=== PATIENT | male | born 1970 | race Caucasian/White ===

== ENCOUNTER 2023-07-30 11:59 | Emergency (ER) | payer OTHER, SELFPAY ==
--- NOTE | 2023-07-30 12:16 | ED.URI ---
HPI - URI/Sore Throat General Chief Complaint: Upper Respiratory Infection Stated Complaint: Sinus Infection Time Seen by Provider: 07/30/23 12:17 Source: patient Mode of arrival: ambulatory Limitations: no limitations History of Present Illness HPI Narrative: Patient is a 52-year-old male who presents with 2 weeks of congestion and cough. Denies any fever, chills, nausea, vomiting, diarrhea. Has been taking [id number] medication with no relief. Related Data Allergies Allergy/AdvReac Type Severity Reaction Status Date / Time amoxicillin [From Augmentin] AdvReac Mild Rash Verified 07/30/23 13:28 clavulanic acid AdvReac Mild Rash Verified 07/30/23 13:28 [From Augmentin] Review of Systems Review of Systems: All systems reviewed & are unremarkable except as noted in HPI and below Constitutional: Constitutional: Denies body ache(s), Denies chills, Denies fatigue, Denies fever(s), Denies headache(s), Denies malaise and Denies weakness Eyes: Eyes: Denies blurry vision, Denies itchy eyes and Denies loss of vision ENT: Denies otalgia, Denies headache(s), Reports nasal congestion, Denies sinus pain and Denies sore throat Cardiovascular: Cardiovascular: Denies chest pain, Denies irregular heart rhythm and Denies dyspnea Respiratory: Respiratory: Reports cough and Denies dyspnea Gastrointestinal: Gastrointestinal: Denies abdominal pain, Denies diarrhea, Denies nausea and Denies vomiting Musculoskeletal: Musculoskeletal: Denies back pain, Denies myalgias and Denies arthralgias Integumentary/Breasts: Skin/Breast: Denies pruritus and Denies rash Neurologic: Denies headache(s), Denies loss of vision and Denies weakness Psychiatric: Psychiatric: Reports no additional psychiatric complaints Endocrine: Endocrine: Denies fatigue Allergic/Immunologic: Allergic/Immunologic: Denies itchy eyes PMFSH Comments At time of signature, agree with nursing past medical, surgical, social and family history. There is no relevant family history pertinent to the presenting complaint. Exam Const: General: cooperative, healthy appearing, comfortable, no acute distress and well nourished Nutritional Appearance: well nourished Orientation/consciousness: patient oriented x3 Limitations: no limitations HENMT: Head: normal to inspection, normocephalic and atraumatic Ears: hearing grossly normal bilaterally, external ears normal, TM's normal bilaterally, EAC's normal and no periauricular adenopathy Face/Nose/Sinus: Normal external nose present, Normal nasal mucous membranes and turbinates present, normal facial exam, sinuses nontender and face symmetric Face and sinus: normal facial exam, sinuses nontender and face symmetric Mouth: Yes Normal oral and palatal mucosa present, Yes lip normal, Yes tongue normal, Yes Normal salivary glands and ducts present, Yes oropharynx normal and Yes moist mucous membranes Teeth and gingiva: dentition normal Throat: posterior oropharynx normal, tonsils normal and uvula midline Eyes: General: appearance normal, both eyes and all related structures Alignment and Position: alignment normal and position normal Periorbital: periorbital findings normal Eyelids: eyelids normal Pupils: Equal, round and reactive pupils present Neck: Neck: normal visual inspection, full ROM, no lymphadenopathy and supple Chest: Chest palpation & inspection: normal inspection of the chest and normal palpation of entire chest wall Resp: Effort & Inspection: normal respiratory effort, able to speak in complete sentences and Actively coughing dry Auscultation: clear to auscultation bilaterally, no crackles, no rales, no rhonchi and no wheezes Cardio: Rate: regular rate Rhythm: regular rhythm Heart sounds: S1 normal heart sound present and S2 normal heart sound present GI: Inspection: normal to inspection Skin: General skin exam: normal color and no rashes or lesions noted Neuro: General: patient oriented x3 and moves all extremiti
[2023-07-30 12:57] VITALS: BP 160/105; PULSE 85; RESP 18; TEMP 36.3; O2SAT 99
== END 2023-07-30 13:37 | disposition home or self-care (01) ==
PROVIDERS: Emergency Provider Nurse Practitioner Family
DX: J06.9 Acute upper respiratory infection, unspecified (principal); R05.9 Cough, unspecified
CPT/HCPCS: 99213; G0463

== ENCOUNTER 2024-11-19 17:55 | Emergency (ER) | payer OTHER, SELFPAY ==
--- OUTSIDE RECORDS SUMMARY | 2024-11-19 17:58 | XMS_ITS | Encounter Summary ---
Author Organization [facility] Address [facility] [place] [address] Care Team Providers Care Farm General Manager Name Role Phone Chin Francisco MD Primary Care Provider [phone] Encounter Details Date Type Department Care Team (Late st Contact Info) Description 01/24/2024 Breadcrumbtracking Message Pending sale to [facility] Family & Internal Medicine [facility] [address] [place] [address] [facility] Provider Reschedule 01/25/24 Appointment Social History Tobacco Use Types Packs/Day Years Used Date Smoking Tobacco: Never Smokeless Tobacco: Never Alcohol Use Standard Drinks/Week Comments Yes 0 (1 standard drink = 0.6 oz pur e alcohol) 3-5 drinks a week PHQ-2 Answer Date Recorded Patient Health Questionnaire-2 Score 0 09/10/2022 Sex and Gender Information Value Date Recorded Sex Assigned at Male 02/14/2024 2:18 PM CDT Legal Sex Male 5:52 PM CDT Gender Identity Male 02/14/2024 2:18 PM CDT Sexual Orientation Straight 02/14/2024 2: 18 PM CDT documented as of this encounter Plan of Treatment Not on file documented as of this encounter Visit Diagnoses Not on filedocumented in this encounter Care Teams Farm General Manager Relationship Specialty [place] [address] [place] [address] PCP - General FAMILY PRACTICE 02/08/20 documented as of this encounter
--- OUTSIDE RECORDS SUMMARY | 2024-11-19 17:58 | XMS_ITS | Encounter Summary ---
Author Organization [facility] Address [facility] [place] [address] Care Team Providers Care Ticket Sorter Name Role Phone Jenelle Rangel NP Primary Care Provider Chin Rodriguez MD Primary Care Provider Encounter Details Date Type Department Care Team (Late st Contact Info) Description 07/16/[address] [facility] CONVERSION [address] [place] [address] , Generic Conversion, Social History Tobacco Use Types Packs/Day Years Used Date Smoking Tobacco: Never Assessed Sex and Gender Information Value Date Recorded Sex Assigned at Male 02/14/2024 2:18 PM CDT Legal Sex Male 5:52 PM CDT Gender Identity Male 02/14/2024 2:18 PM CDT Sexual Orientation Straight 02/14/2024 2: 18 PM CDT documented as of this encounter Plan of Treatment Not on file documented as of this encounter Visit Diagnoses Not on filedocumented in this encounter Care Teams Ticket Sorter Relationship Specialty Start Date End Date Jenelle Rangel NP PCP - General Nurse Practitioner Family 07/28/18 02/07/20 [place] [address] [place] [address] PCP - General FAMILY PRACTICE 02/08/20 documented as of this encounter
--- OUTSIDE RECORDS SUMMARY | 2024-11-19 17:58 | XMS_ITS | Clinical Summary ---
Author Organization [facility] Address [facility] [place] [address] Care Team Providers Care Wildlife Biologist Name Role Phone Chin Francisco MD Primary Care Provider [phone] Allergies Active Allergy Reactions Criticality Noted Date Comments Amoxicillin-Pot Clavulanate Hives Medium 05/01/20 Medications lisinopril (PRINIVIL) 10 MG tabletIndications :Primary hypertension TAKE 1 TABLET BY MOUTH EVERY DAY 90 tablet 09/11/2024 Active Active Problems Problem Noted Date Diagnosed Date Primary hypertension 09/26/2024 Screening for colon cancer 09/19/2022 Overview (09/19/2022): Added automatically from request for surgery [id number] Seasonal allergic rhinitis, unspecified trigger 11/14/2021 Elevated cholesterol 07/01/2015 Vitamin B12 deficiency 04/12/2013 Resolved Problems Problem Noted Date Diagnosed Date Resolved Date Encounter for preventive health examination 03/02/2013 02/16/2020 Encounters Date Type Department Care Team Description 09/26/2024 7:20 AM CDT Office Visit [facility] Family & Internal Medicine [address] [address] Chin Francisco MD Follow Up 09/26/2024 Travel from Last 3 Months Immunizations Immunization Administration Dates Next Due Influenza (Generic) 05/07/2015 Influenza Adult (Generic) 05/07/2015 MODERNA COVID-19 (12+) MRNA, LNP-S, PF, 100 MCG/ 0.5 ML DOSE 10/02/2020,09/05/2020 Tdap (Adacel) 11/19/2021 Tdap (Generic) 10/28/2013 Family History Medical History Relation Comments Colon polyps Father Diabetes Father Diabetes Mother Relation Status Comments Father Alive Mother Alive Social History Tobacco Use Types Packs/Day Years Used Date Smoking Tobacco: Never Smokeless Tobacco: Never Tobacco Cessation:Counseling Given: No Alcohol Use Standard Drinks/Week Comments Yes 0 (1 standard drink = 0.6 oz pur e alcohol) 3-5 drinks a week PHQ-2 Answer Date Recorded Patient Health Questionnaire-2 Score 0 09/26/2024 Sex and Gender Information Value Date Recorded Sex Assigned at Male 02/14/2024 2:18 PM CDT Legal Sex Male 5:52 PM CDT Gender Identity Male 02/14/2024 2:18 PM CDT Sexual Orientation Straight 02/14/2024 2: 18 PM CDT Last Filed Vital Signs Vital Sign Reading Time Taken Comments Blood Pressure 134/91 09/26/2024 7:21 AM CDT Pulse 81 09/26/2024 7:21 AM CDT Temperature 36.2 C (97.2 F) 09/26/2024 7:21 AM CDT Respiratory Rate 16 09/26/2024 7:21 AM CDT Oxygen Saturation 98% 09/26/2024 7:21 AM CDT Inhaled Oxygen Concentration - - Weight 74.8 kg (165 lb) 09/26/2024 7:21 AM CDT Height 172.7 cm (5' 8) 09/26/2024 7:21 AM CDT Body Mass Index 25.09 09/26/2024 7:21 AM CDT Plan of Treatment Health Maintenance Due Date Last Done Comments Hepatitis C 1990 Hepatitis B Vaccines (1 of 3 - 19+ 3-dose series) 10/23/1991 Pneumococcal Vaccine: 50+ Years (1 of 1 - PCV) 2022 Zoster Vaccines (1 of 2) 2022 COVID-19 Vaccine (3 - 2023-2 5 season) 2024 10/02/2020, 09/05/2020 Annual Physical 02/14/2025 02/15/2024, 09/10/2022, 02/16/2020 DTaP, Tdap and Td Vaccines ( 3 - Td or Tdap) 11/20/2031 11/19/2021, 10/28/2013 Colorectal Cancer Screening Colonoscopy (10 Years) 01/08/2033 01/08/2023 PHQ-2 (Physician [place]) Completed 09/26/2024 Meningococcal B Vaccine Aged Out No l onger eligible based on patient's age to complete this topic Meningococcal Vaccine Aged Out No markell adrián eligible based on patient's age to complete this topic RSV Immunizations Under 20 Months Aged Out No longer eligible b ased on patient's age to complete this topic Insurance [facility] Care Teams Wildlife Biologist Relationship Specialty [place] [address] [place] [address] PCP - General FAMILY PRACTICE 02/08/20
--- OUTSIDE RECORDS SUMMARY | 2024-11-19 17:58 | XMS_ITS | Encounter Summary ---
Author Organization [facility] Address [address] [place] [address] Care Team Providers Care Yard Assistant Name Role Phone Jenelle Rangel NP Primary Care Provider Chin Rodriguez MD Primary Care Provider Encounter Details Date Type Department Care Team (Latest Contact Info) Description 04/12/2018 Abstract [facility] Viviana Mathew MD Social History Tobacco Use Types Packs/Day Years [...] on filedocumented in this encounter Care Teams Yard Assistant Relationship Specialty Start Date End Date Jenelle Rangel NP PCP - General Nurse Practitioner Family 07/28/18 02/07/20 [place] [address] [place] [address] PCP - General FAMILY PRACTICE 02/08/20 documented as of this encounter
[2024-11-19 18:00] VITALS: BP 113/85; PULSE 95; RESP 18; TEMP 36.1; O2SAT 95
--- NOTE | 2024-11-19 18:04 | ED_ITS ---
HPI - Skin/Abscess/Foreign Bdy General Chief complaint: Skin/Abscess/Foreign Body Stated complaint: Fishing hook in back Time Seen by Provider: 11/19/24 18:02 Source: patient and RN notes reviewed Mode of arrival: ambulatory Limitations: no limitations History of Present Illness HPI narrative: 54-year-old male presents with concern for a fishhook in his back. Reports this happened just prior to arrival, they tried to get it out but were unsuccessful. MD complaint: foreign body Related Data Home Medications ?Medication ?Instructions ?Recorded ?Confirmed ?Last Taken ?Type lisinopril 10 mg tablet mg 11/19/24 Unknown History Allergies Allergy/AdvReac Type Severity Reaction Status Date / Time amoxicillin (From Augmentin) Allergy Mild Rash Verified 11/19/24 17:57 clavulanic acid (From Allergy Mild Rash Verified 11/19/24 17:57 Augmentin) Review of Systems Review of Systems: CONSTITUTIONAL: Denies malaise, chills, sweats, or fever. SKIN: Reports fishhook in his back MUSCULOSKELETAL: Denies muscle skeletal pain NEUROLOGIC: Denies numbness, weakness All systems reviewed & are unremarkable except as noted in HPI and below PMFSH Comments At time of signature, agree with nursing past medical, surgical, social and family history. There is no relevant family history pertinent to the presenting complaint Exam Narrative: GENERAL: Well-appearing, well-nourished, and in no acute distress. HEAD: Normocephalic, atraumatic. EYES: PERRLA, conjunctivae clear, and EOMI. ENT: Mucous membranes moist. NECK: Supple. No lymphadenopathy CHEST: Clear to auscultation. No respiratory distress. HEART: Regular rate and rhythm. SKIN: Warm, dry. [place] noted to be lodged superficially into the mid back NEURO: Alert and oriented x3. PSYCH: Normal mood and affect Course Course Emergency Course: Patient is aware of diagnosis, understands and agrees to treatment plan. Anticipatory guidance given. Patient agrees to follow-up as directed and is aware of reasons to seek care at the emergency department. Portions of this record may have been created with voice recognition software Level of Care: Express Care Visit Vital Signs Vital signs: Vital Signs Temperature 96.9 F L 11/19/24 18:00 Pulse Rate 95 11/19/24 18:00 Respiratory Rate 18 11/19/24 18:00 Blood Pressure 113/85 11/19/24 18:00 Pulse Oximetry 95 11/19/24 18:00 Oxygen Delivery Room Air 11/19/24 18:00 Temperature 96.9 F L 11/19/24 18:00 Pulse Rate 95 11/19/24 18:00 Respiratory Rate 18 11/19/24 18:00 Blood Pressure 113/85 11/19/24 18:00 Pulse Oximetry 95 11/19/24 18:00 Oxygen Delivery Room Air 11/19/24 18:00 Reviewed. Procedures Foreign Body Removal Foreign Body #1: Foreign Body Removal Date: 12/06/24 Foreign Body Removal Time: 18:25 Time Out Performed: yes Site: other (back) Description of foreign body: fish hook Sedation/Analgesia: other (lidocaine) Technique: removal with forceps Confirmed by:: direct visualization Foreign Body Removal Narrative: 2 hooks of a 3-pronged hook were lodged in the patient's back. Wire cutters used to cut hooks and hooks were threaded through successfully. MDM - Skin/Abscess/Foreign Bdy MDM Narrative Medical decision making narrative: I evaluated this patient in the [facility] care. History is obtained from patient who is an independent historian and physical exam was performed.? Available medical records were reviewed. ? Exam findings testing show no acute concerns or changes; patient is non-toxic appearing and is in no distress. ? Differential diagnosis and treatment plan were discussed with the patient. Patient agrees with discussion and after shared medical decision making agrees with plan of care. All questions were answered to the patient's satisfaction. Patient is appropriate for outpatient treatment and follow-up. Critical Care Time Critical Care Time Critical Care Time: No Discharge Plan Discharge Clinical Impression: Foreign body (FB) in soft tissue Patient Disposition: Home Condition: Stable Instructions: Antibiotic Form, Soft Tissue Foreign Body (ED) Additional Instructions: Please follow up with your Primary Care Doctor within 48-72 hours. Take Motrin 600mg every 8 hours with food for pain. Please take Antibiotics as directed. If you experience any worsening redness, swelling, streaking (red lines), fever or chills please go to the ER Patient Language: Indian Prescriptions: New cefdinir 300 mg capsule 300 mg PO Q12H 10 Days Qty: 20 0RF No Action (DME) Aerochamber MV Spacer See Rx Instructions .Route Qty: 1 0RF Rx Instructions: As directed lisinopril 10 mg tablet Follow-up/Referrals: Nolan,Chin Garcia MD [Primary Care Provider] - Time of Disposition: 18:24
== END 2024-11-19 18:26 | disposition home or self-care (01) ==
PROVIDERS: Emergency Provider Nurse Practitioner; PCP Family Medicine
DX: S21.249A Puncture wound with foreign body of unspecified back wall of thorax without penetration into thoracic cavity, initial encounter (principal); W26.9XXA Contact with unspecified sharp object(s), initial encounter; I10 Essential (primary) hypertension; Z98.52 Vasectomy status
CPT/HCPCS: 99213; G0463; J2003

== ENCOUNTER 2025-04-06 17:43 | Emergency (ER) | payer OTHER, SELFPAY ==
[2025-04-06 17:51] VITALS: BP 114/90; PULSE 72; RESP 18; TEMP 36; O2SAT 100
--- NOTE | 2025-04-06 18:16 | ED_ITS ---
HPI - Ear Problem General Chief complaint: Ear Stated complaint: L Ear Time Seen by Provider: 04/06/25 18:00 Source: patient and RN notes reviewed Mode of arrival: ambulatory Limitations: no limitations History of Present Illness HPI Narrative: 54-year-old male patient presents to the [facility] complaining of left ear pain, left side congestion for approximately 6 days. Patient said he noticed after returning from a flight from [place]. Patient denies any jaw pain, runny nose, cough, nasal drainage, fevers, eczema chills,, dizziness, lightheadedness, nausea, vomiting, diarrhea, abdominal pain, chest pain difficulty breathing, or any other symptoms. Patient denies any significant past medical problems. Patient has not tried any [id number] to help with symptoms. Related Data Home Medications ?Medication ?Instructions ?Recorded ?Confirmed ?Last Taken ?Type lisinopril 10 mg tablet mg 11/19/24 Unknown History Allergies Allergy/AdvReac Type Severity Reaction Status Date / Time amoxicillin (From Augmentin) Allergy Mild Rash Verified 04/06/25 17:53 clavulanic acid (From Allergy Mild Rash Verified 04/06/25 17:53 Augmentin) Review of Systems Review of Systems: CONSTITUTIONAL: Denies fever, body aches, chills, or sweats. EYES: Denies visual changes, redness, or discharge. ENT: Denies rhinorrhea, sore throat, positive for congestion or otalgia. CARDIOVASCULAR: Denies chest pain, palpitations, or edema. RESPIRATORY: Denies cough or dyspnea. GASTROINTESTINAL: Denies abdominal pain, nausea, vomiting, or diarrhea. GENITOURINARY: Denies dysuria or hematuria. SKIN: Denies rash or itching. MUSCULOSKELETAL: Denies back pain, joint pain, or myalgia. NEUROLOGIC: Denies headache, numbness, or weakness. PSYCHIATRIC: Denies anxiety or depression. All other systems reviewed are negative, except as documented in HPI. PMFSH Comments At the time of my signature, I reviewed and agree with the nursing past medical, surgical, social, and family history. There is no relevant family history pertinent to the patient complaint. Exam Narrative: GENERAL: This is a well-nourished, well-developed adult, in no apparent distress. They are non ill-appearing, nontoxic appearing. HEAD: normocephalic, atraumatic. EYES: Sclera clear/white. Conjunctiva normal. Vision is grossly intact. Extraocular movements intact EARS: External ears normal, auditory canals clear and without drainage, TMs normal without perforation. Hearing grossly intact. NOSE: External nose normal with no obvious nasal discharge, right nasal turbinate without redness or swelling, left nasal turbinates edematous and boggy, no rhinorrhea. No maxillary or frontal sinus tenderness to palpation. THROAT: Mucous membranes moist, posterior pharynx clear, without erythema or swelling. Uvula midline. OROPHARYNX: No gross tooth decay. Teeth intact. No missing teeth. No gingivitis. Tongue midline. No trismus. No TMJ tenderness to palpation. NECK: Neck supple, non-tender without lymphadenopathy, masses or thyromegaly. CARDIOVASCULAR: Regular rate and rhythm without murmurs, gallops, or rubs. RESPIRATORY: Clear to auscultation. Breath sounds equal bilaterally. No wheezes, rales, or rhonchi. SKIN: warm, Dry, intact with no suspicious lesions or rash, good texture and turgor. NEURO: awake, alert, and oriented to person, place and time. There were no obvious focal neurologic abnormalities. EXTREMITIES: No joint tenderness, effusion, or edema noted. BACK: Nontender without deformity. No CVA tenderness. Course Course Emergency Course: Portions of this record may have been created with voice recognition software Level of Care: Express Care Visit Vital Signs Vital signs: Vital Signs Temperature 96.8 F L 04/06/25 17:51 Pulse Rate 72 04/06/25 17:51 Respiratory Rate 18 04/06/25 17:51 Blood Pressure 114/90 04/06/25 17:51 Pulse Oximetry 100 04/06/25 17:51 Oxygen Delivery Room Air 04/06/25 17:51 Temperature 96.8 F L 04/06/25 17:51 Pulse Rate 72 04/06/25 17:51 Respiratory Rate 18 04/06/25 17:51 Blood Pressure 114/90 04/06/25 17:51 Pulse Oximetry 100 04/06/25 17:51 Oxygen Delivery Room Air 04/06/25 17:51 Reviewed Medical Decision Making MDM Narrative Medical decision making narrative: No evidence of infection. Symptoms likely related to low allergies. Discussed supportive care including not limited to antihistamines and nasal sprays. Discussed physical exam findings. Advised supportive measures and signs/symptoms to go to the ER. Pt is appropriate for outpt treatment and f/u. Differential Diagnosis Differential Diagnosis: Otitis media, TMJ, sinusitis, upper respiratory infection, viral illness, otitis externa, allergic rhinitis Vital Signs Vital Signs: Vital Signs Temperature 96.8 F L 04/06/25 17:51 Pulse Rate 72 04/06/25 17:51 Respiratory Rate 18 04/06/25 17:51 Blood Pressure 114/90 04/06/25 17:51 Pulse Oximetry 100 04/06/25 17:51 Oxygen Delivery Room Air 04/06/25 17:51 Temperature 96.8 F L 04/06/25 17:51 Pulse Rate 72 04/06/25 17:51 Respiratory Rate 18 04/06/25 17:51 Blood Pressure 114/90 04/06/25 17:51 Pulse Oximetry 100 04/06/25 17:51 Oxygen Delivery Room Air 04/06/25 17:51 Critical Care Time Critical Care Time Critical Care Time: No Discharge Plan Discharge Clinical Impression: Ear pain, left, Allergic rhinitis Patient Disposition: Home Condition: Stable Instructions: Antibiotic Form, Allergies (ED) Additional Instructions: Take Zyrtec or Claritin daily to help with congestion. May use Flonase nasal steroid 2 sprays each nostril daily. May also try azelastine antihistamine nasal spray 2 sprays each nostril daily. These medications are all [id number]. Drink plenty of fluids. Tylenol or ibuprofen as needed for pain or fevers. Follow instructions on the bottle. Follow-up with PCP in 1 week. To the ER if he developed breathing problems, chest pain, vomiting, worsening symptoms, or any serious concerns. Patient Language: Arabic Prescriptions: No Action (DME) Aerochamber MV Spacer See Rx Instructions .Route Qty: 1 0RF Rx Instructions: As directed lisinopril 10 mg tablet Follow-up/Referrals: Nolan,Chin Garcia MD [Primary Care Provider] Time of Disposition: 18:14
== END 2025-04-06 18:14 | disposition home or self-care (01) ==
PROVIDERS: PCP Family Medicine
DX: H92.02 Otalgia, left ear (principal); J30.9 Allergic rhinitis, unspecified; I10 Essential (primary) hypertension; Z98.52 Vasectomy status
CPT/HCPCS: 99211; G0463